=== PATIENT | female | born 1975 | race Hispanic/Latino ===

== ENCOUNTER 2017-11-28 17:38 | Emergency (ER) | payer MEDICARE ==
[~2017-11-28 17:38] MED LIST: CLON1TAB23 PO; HYDR-3971 PO; PARO-37 PO; TOPI200T16 PO
== END 2017-11-28 18:42 | disposition home or self-care (01) ==
LOC: EDH 17:38
DX: S93.492A Sprain of other ligament of left ankle, initial encounter (principal); F32.9 Major depressive disorder, single episode, unspecified; Z88.0 Allergy status to penicillin; Z88.1 Allergy status to other antibiotic agents; Z90.710 Acquired absence of both cervix and uterus; Z90.49 Acquired absence of other specified parts of digestive tract; W01.0XXA Fall on same level from slipping, tripping and stumbling without subsequent striking against object, initial encounter; Y93.89 Activity, other specified; Y92.481 Parking lot as the place of occurrence of the external cause; Y99.8 Other external cause status
CPT/HCPCS: 29515; 73590; 73610